=== PATIENT | female | born 1960 | race Hispanic/Latino ===

== ENCOUNTER 2022-07-02 19:08 | Emergency (ER) | payer MEDICAID, SELFPAY ==
--- NOTE | ~2022-07-02 | XR_ITS ---
EXAM: XR ankle RT min 3V DATE: 07/02/2022 21:26 HISTORY: pain. COMPARISON: None available. FINDINGS: Normal mineralization. No acute fracture or dislocation. Old medial malleolus avulsion fra gment. No lytic or blastic lesion. Moderate-severe degenerative changes in the ankle and midfoot. No erosion or periosteal change. Soft tissue swelling about the ankle. Vascular calcifications. IMPRESSION: No acute osseous finding in the right ankle. Reviewed, dictated and finalized at location K. TH PHYSICIST
--- NOTE | ~2022-07-02 | XR_ITS ---
Right foot Technique: AP, oblique, and lateral views were obtained. Clinical History: Pain Findings: No acute fracture or dislocation is seen. There is moderate to advanced degenerative change along the second through fifth tarsometatarsal joints. There is mild degenerative changes of the denton onavicular and calcaneocuboid joints. There is advanced degenerative change of the naviculocuneiform articulation. Soft tissues are unremarkable. Impression: Extensive degenerative changes of the midfoot and hindfoot articulations, as detailed above. Reviewed, dictated and finalized at location M. OTIONAL ADVERTISING ASSISTANT Impression: Extensive degenerative changes of the midfoot and hindfoot articulations, as de tailed above.
[2022-07-02 19:14] VITALS: BP 175/56; PULSE 72; RESP 17; TEMP 36.7; O2SAT 100
[2022-07-02] MEDS: traMADol HCL (*CRX) 50 MG TABLET PO (23:57)
--- NOTE | 2022-07-03 01:18 | ED.EXTPRO ---
HPI - Extremity Problem General Chief complaint: Extremity Problem,Nontraumatic Stated complaint: surgical wound problem Time Seen by Provider: 07/02/22 23:18 Source: patient and RN notes reviewed Mode of arrival: ambulatory Limitations: language barrier (thai speaking) History of Present Illness HPI Narrative: This is a 61 year old female who presents for evaluation of right foot pain. Patient reports she had surgeon to her foot 3 years ago and they removed hardware. She has been dealing with chronic pain since then. She reported worsening pain 3 days ago when she stepped on a rock. Her pain is located on right lateral plantar surface and she has chronic ulcer at the location. She denies any drainage from this ulcer. She has not been taking any thing for pain. She just moved here from [facility]. She has appointment with PCP in 1 month for the first time. Related Data Allergies Allergy/AdvReac Type Severity Reaction Status Date / Time No Known Allergies Allergy Verified 07/03/22 01:28 Review of Systems Constitutional: Constitutional: Denies weakness Cardiovascular: Cardiovascular: Denies syncope, Denies rapid heart rate, Denies irregular heart rhythm, Denies leg edema and Denies dyspnea Respiratory: Respiratory: Denies chest congestion, Denies hemoptysis, Denies excessive phlegm production and Denies dyspnea Gastrointestinal: Gastrointestinal: Denies abdominal pain, Denies hematochezia, Denies diarrhea and Denies vomiting Genitourinary: Genitourinary: Denies hematuria and Denies dysuria Musculoskeletal: Musculoskeletal: Reports arthralgias (multiple), Denies joint swelling, Denies loss of height and Denies muscle weakness Neurologic: Denies syncope, Denies focal weakness and Denies weakness [facility] Past Medical History Medical History (Updated 07/03/22 @ 01:28 by Jennifer Stapleton MD) Arthritis Hypertension Social History Social History (Updated 07/03/22 @ 01:25 by Jennifer Stapleton MD) Smoking status: Never smoker Exam Const: General: no acute distress and alert Nutritional Appearance: obese Orientation/consciousness: patient oriented x3 Eyes: EOM: EOMs intact bilaterally Resp: Effort & Inspection: normal respiratory effort Cardio: Other: strong bilateral pedal pulses Skin: General skin exam: normal color Rashes: no rashes Other: right lateral plantar surface of foot with 3 cm area of hard callous, thickened skin, no erythema, no necrosis, no discharge Neuro: General: patient oriented x3, moves all extremities and CN's II-XI intact bilaterally Extrem: Other: bilateral feet with swelling, on right foot plantar lateral surface is 3 cm callous Psych: Mental Status: mental status grossly normal Affect: normal affect Attitude: cooperative Course Vital Signs Vital signs: Vital Signs Temperature 98.1 F 07/02/22 19:14 Pulse Rate 72 07/02/22 19:14 Respiratory Rate 17 07/02/22 19:14 Blood Pressure 175/56 H 07/02/22 19:14 Pulse Oximetry 100 07/02/22 19:14 Temperature 98.1 F 07/02/22 19:14 Pulse Rate 75 07/03/22 01:52 Respiratory Rate 18 07/03/22 01:52 Blood Pressure 168/82 H 07/03/22 01:52 Pulse Oximetry 99 07/03/22 01:52 MDM - Extremity (Nontraumatic) MDM Narrative Medical decision making narrative: patient presents with chronic pain to right foot for 3 years. She has callus at area of pain. no sign of infection or drainage. xray was ordered with shows chronic changes. She reports chronic joint pain issues. She reports issues with hands and hips . She likey has some chronic process. I do not think further imaging or labs needed at this time. she will follow up with PCP Imaging Data Attestation: I personally reviewed and interpreted this imaging study as follows: My impression: right foot, chronic changes, no acute fracture Discharge Plan Discharge Clinical Impression: Chronic pain in right foot Patient Disposition: Home, Divya
[2022-07-03 01:52] VITALS: BP 168/82; PULSE 75; RESP 18; O2SAT 99
== END 2022-07-03 01:40 | disposition home or self-care (01) ==
PROVIDERS: Emergency Provider General Practice
DX: M79.671 Pain in right foot (principal); G89.29 Other chronic pain
CPT/HCPCS: 73610; 73630; 99283; A9270

== ENCOUNTER 2023-12-07 17:31 | Emergency (ER) | payer MEDICAID, SELFPAY ==
--- NOTE | ~2023-12-07 | XR_ITS ---
XR chest 2V DATE: 12/07/2023 18:22 INDICATION: Syncope TECHNIQUE: Portable AP chest on 12/07/2023 at 1816 hours COMPARISON: None FINDINGS: Heart size appears borderline, not optimally evaluated on AP projection because of magnific ation. There is aortic arch calcification. No pulmonary infiltrate or consolidation, pleural effusion or pulmonary vascular congestion or pneumo thorax is evident. Osteopenia. Diffuse idiopathic skeletal hyperostosis of the thoracic spine. Generative changes at the acromioclavicular and glenohumeral joints. IMPRESSION: No active pulmonary disease Reviewed, dictated and finalized at location J. IMPRESSION: No active pulmonary disease
--- NOTE | ~2023-12-07 | CT_ITS ---
EXAMINATION: CT brain wo con DATE: 12/07/2023 19:38 INDICATION: Syncope. Headache. TECHNIQUE: Computed tomography (CT) of the head was performed without intravenous contrast. The mA wa s adjusted according to patient size. Iterative reconstruction technique was employed. Exam dose: 90 8.00 mGy-cm total exam DLP. COMPARISON: None FINDINGS: Bilateral carotid siphon internal carotid artery calcifications. Vertebral artery calcifica tions. There is nonspecific diminished attenuation of the cerebral white matter, likely due to chronic small vessel ischemic changes. No intracranial mass lesion or hemorrhage or cerebrovascular accident is noted. Small chronic lacunar infarct near the junction of the basal ganglia and anterior limb of the left in ternal capsule. Mild bilateral basal ganglia calcification. Normal size of the ventricles. No subdural or epidural hematoma is detected. No skull fracture or bone destruction. The paranasal sinuses and mastoid air cells are normally developed and aerated. IMPRESSION: Cerebral atherosclerosis and chronic small vessel ischemic changes of the cerebral white matter Small left basal ganglia lacunar infarct No skull fracture or acute intracranial finding Reviewed, dictated and finalized at Location A. Reviewed, dictated and finalized at location J.
--- NOTE | 2023-12-07 17:33 | ECG_ITS ---
Test Date: 2023-12-07 17:49:57 Measurements Intervals [place] Rate: 71 P: 53 MS: 196 QRS: 23 QRSD: 82 T: 55 QT: 389 QTc: 423 Interpretive Statements SINUS RHYTHM NORMAL ELECTROCARDIOGRAM No previous ECG available for comparison Electronically Signed On 12-08-2023 15:28:40 CDT by Panda Trejo M.D.
[2023-12-07 18:05] LABS: Basophils Percent Auto 0.4 % (0.2-1.2); Eosinophils Absolute Auto 0.3 K/mm3 (0-0.3); Eosinophils Percent Auto 2.6 % (0-4.4); Hematocrit 38.9 % (37.0-47.0); Hemoglobin 12.4 g/dL (12.0-15.0); Immature Granulocyte Absolute 0.02 K/mm3 (0.00-0.031); Immature Granulocyte Percent A 0.2 % (0-0.5); Lymphocytes Absolute Auto 2.01 K/mm3 (0.9-3.2); Mean Corpuscular HGB Conc 31.9 g/dl (32-36); Mean Corpuscular Hemoglobin 27.6 pg (26-34); Mean Corpuscular Volume 86.4 fl (80-100); Monocytes Absolute Auto 1.2 K/mm3 (0.1-0.6); Monocytes Percent Auto 12.3 % (2.6-8.5); Neutrophils Absolute Auto 6.5 K/mm3 (1.3-6.7); Neutrophils Percent Auto 64.5 % (45.5-73.1); Platelet Count Result 204 k/mm3 (150-375); White Blood Count 10.1 K/mm3 (4.5-10.0)
[2023-12-07 18:14] LABS: Alanine Aminotransferase 23 U/L (6-35); Alkaline Phosphatase 141 U/L (38-126); Anion Gap 9 mmol/L (4-12); Aspartate Amino Transferase 23 U/L (14-36); Bilirubin,Total 0.6 mg/dL (0.2-1.3); Blood Urea Nitrogen 13 mg/dL (7-17); Calcium 8.7 mg/dL (8.4-10.2); Carbon Dioxide 27 mmol/L (22-30); Chloride 103 mmol/L (98-107); Estimated CRCL calculation 69 ml/min; Estimated Glomerular Filt Rate > 60; Glucose 107 mg/dL (65-110); Potassium 3.8 mmol/L (3.4-5.0); Sodium 139 mmol/L (137-145)
--- NOTE | 2023-12-07 19:14 | ED.SYNCOPE ---
HPI - Syncope General Chief Complaint: Syncope Stated Complaint: SPIDER BITE, SYNCOPY Time Seen by Provider: 12/07/23 18:54 Source: patient Mode of arrival: EMS Limitations: language barrier (using [employer] liability claims adjuster) History of Present Illness HPI narrative: This is a 63 year old female that presents to the ER for a syncopal episode. Reports a spider fell onto her left hand and bit her. Reports she felt tingling in her hand as well as pain. She then passed out. Does report history of syncopal episodes in the past. Reports she is not up to date on tetanus vaccination. Reported some chest pain to EMS which is resolving. Denies shortness of breath or palpitations. Related Data Home Medications Medication Instructions Recorded Confirmed aspirin 81 mg tablet,delayed 81 mg PO DAILY 10/31/23 10/31/23 release glimepiride 1 mg tablet 1 mg PO QAM 10/31/23 10/31/23 losartan 50 mg-hydrochlorothiazide 1 tablet PO DAILY 10/31/23 10/31/23 12.5 mg tablet Allergies Allergy/AdvReac Type Severity Reaction Status Date / Time No Known Allergies Allergy Verified 07/03/22 01:28 Review of Systems Review of Systems: CONSTITUTIONAL: Denies fever CARDIOVASCULAR: Reports chest pain. Denies palpitations, or edema. RESPIRATORY: Denies dyspnea. GASTROINTESTINAL: Denies vomiting NEUROLOGIC: Denies numbness, or weakness. All systems reviewed & are unremarkable except as noted in HPI and below PMFSH Past Medical History Medical History (Updated 12/07/23 @ 23:31 by Priscilla Yeboah PA-C) Arthritis Hypertension Social History Social History (Updated 07/03/22 @ 01:25 by Jennifer Stapleton MD) Smoking status: Never smoker Exam Narrative: GENERAL: Well-appearing, well-nourished, and in no acute distress. HEAD: Normocephalic, atraumatic. EYES: PERRLA and EOMI. ENT: Nares clear, no rhinorrhea or epistaxis. Mucous membranes moist. Oropharynx without tonsillar hypertrophy exudate or other lesions. NECK: Supple. No adenopathy or masses. CHEST: Clear to auscultation. No respiratory distress. No wheezes rales or rhonchi HEART: Regular rate and rhythm. No murmur heard. Normal peripheral pulses. EXTREMITIES: Normal range of motion. No edema or erythema. SKIN: Warm, dry, no rash. NEURO: No focal deficits. Alert and oriented x3. PSYCH: Normal mood and affect Course Course Emergency Course: Patient and family updated on workup and agree with plan of care Vital Signs Vital signs: Vital Signs Temperature 98.1 F 12/07/23 22:30 Pulse Rate 65 12/07/23 22:30 Respiratory Rate 14 12/07/23 22:30 Blood Pressure 134/58 L 12/07/23 22:30 Pulse Oximetry 98 12/07/23 22:30 Temperature 98.1 F 12/07/23 22:30 Pulse Rate 73 12/07/23 22:37 Respiratory Rate 14 12/07/23 22:30 Blood Pressure 134/58 L 12/07/23 22:30 Pulse Oximetry 98 12/07/23 22:30 MDM - Syncope MDM Narrative Medical decision making narrative: Patient presents to the ER for a spider bite. Patient had a syncopal episode after this. Her vitals are stable. She is neurologically intact. Does report history of similar previous syncopal episodes. Was reporting some chest pain initially which resolved. CBC and metabolic panel without concerning findings. Chest x-ray without acute cardiopulmonary abnormality. EKG without concerning changes. Baseline and 3 hour troponin are negative. CT brain is normal. Patient was updated on tetanus vaccination. No obvious bite/wound currently. Hill syncope risk score makes her very low risk. She was updated on her workup and agrees with plan of care. She is to follow up with PCP. She was given warnings to return to the ER Differential Diagnosis Differential diagnosis: Likely vasovagal syncope, dehydration and other Lab Data Attestation: I reviewed the patient's lab results. 12/07/23 17:58 12/07/23 17:58 Labs: Lab Results 12/07/23 12/07/23 Range/Units 17:58 21:13 WB
[2023-12-07 19:27] LABS: Troponin I < 0.012 ng/mL (0.000-0.034)
[2023-12-07] MEDS: ACETAMINOPHEN 500 MG TABLET 1000 MG PO (19:53)
[2023-12-07] MEDS: TETANUS,DIPHTHERIA,AC PERTUSSIS ADULT (0.5 ML) BOOSTRIX IM (19:54)
--- NOTE | 2023-12-07 21:27 | ECG_ITS ---
Test Date: 2023-12-07 21:34:15 Measurements Intervals [place] Rate: 64 P: 62 CA: 205 QRS: 25 QRSD: 86 T: 44 QT: 425 QTc: 441 Interpretive Statements SINUS RHYTHM NORMAL ELECTROCARDIOGRAM Compared to ECG 12/07/2023 17:49:57 No significant changes Electronically Signed On 12-08-2023 15:31:55 CDT by Panda Trejo M.D.
[2023-12-07 21:52] LABS: Troponin I < 0.012 ng/mL (0.000-0.034)
[2023-12-07 22:30] VITALS: BP 134/58; PULSE 65; RESP 14; TEMP 36.7; O2SAT 98
[2023-12-07 22:37] VITALS: PULSE 73
[2023-12-08 00:43] VITALS: BP 148/58; PULSE 66; RESP 13; O2SAT 99
== END 2023-12-08 00:48 | disposition home or self-care (01) ==
PROVIDERS: Emergency Medicine; Emergency Provider Physician Assistant
DX: R55 Syncope and collapse (principal); S60.562A Insect bite (nonvenomous) of left hand, initial encounter; Z23 Encounter for immunization; I10 Essential (primary) hypertension; M19.90 Unspecified osteoarthritis, unspecified site; I67.2 Cerebral atherosclerosis; Z79.82 Long term (current) use of aspirin; Z79.84 Long term (current) use of oral hypoglycemic drugs; W57.XXXA Bitten or stung by nonvenomous insect and other nonvenomous arthropods, initial encounter
CPT/HCPCS: 36415; 70450; 71046; 80053; 84484; 85025; 90471; 90715; 93005; 96372; 99284; A9270